=== PATIENT | male | born 1945 | race Caucasian/White ===

== ENCOUNTER 2016-08-14 18:43 | Observation (INO) | payer MEDICARE, OTHER ==
--- NOTE | 2016-08-14 20:03 | RAD ---
Indication: Code Jones. Difficulty finding words at approximate 1500 hours today. Comparison: No relevant prior exams available on the [facility] [place] for comparison. Technique: Noncontrast CT vertex of skull through foramen magnum. Report: 2.9 x 3.4 cm region of encephalomalacia at the anterior portion of the LEFT temporal lobe with associated mild ex vacuo dilatation of the temporal horn of the LEFT lateral ventricle noted related to a previous lesion with overlying LEFT temporal parietal craniectomy site. No additional region of acevedo matter white matter obscuration, intra or extra-axial hemorrhage, or mass effect evident. Unremarkable cerebral sulci and basal cisterns. Moderate prominence of the ventricles most likely secondary to involutional change. Unremarkable visualized orbital contents. No suspicious calvarial or skull base lesions evident. Clear paranasal sinuses and mastoid air spaces. Unremarkable scalp. IMPRESSION: 1. 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 2. Mild involutional change. 3. No acute intracranial process evident. Results discussed Dr. Villaseñor 08/14/2016 7:58 PM EDT
[2016-08-14 20:06] LABS: Hematocrit 43 % (42-52); Hemoglobin 14.4 g/dl (14.0-18.0); Mean Corpuscular HGB Conc 33 g/dl (31-36); Mean Corpuscular Hemoglobin 32 pg (27-31); Mean Corpuscular Volume 97 fL (80-94); Mean Platelet Volume 8 um3 (7.4-10.4); Red Blood Count 4.44 10^6/ul (4.0-5.4); Red Cell Distribution Width 13 % (10.5-15)
--- NOTE | 2016-08-14 20:11 | RAD ---
Indication: Slurred speech. Code acevedo. Comparison: November 17, 2009 CT abdomen. Technique: Upright AP 1950 hours Report: Clear lungs and pleural spaces. The heart, pulmonary vasculature, and mediastinal contours are unremarkable. Unremarkable osseous structures and soft tissue contours. IMPRESSION: No evidence for acute intrathoracic disease.
[2016-08-14 20:20] LABS: ALT 15 U/L (7-52); AST 19 U/L (13-39); Alkaline Phosphatase 50 U/L (34-104); Anion Gap 1 mmol/L (2-11); BUN/Creatinine Ratio 18.3 (8-20); Blood Urea Nitrogen 20 mg/dL (6-24); CO2 Carbon Dioxide 28 mmol/L (22-32); Calcium 9.3 mg/dL (8.6-10.3); Chloride 106 mmol/L (101-111); Cholesterol 146 mg/dL; EGFR African American 85.3 (>60); EGFR Non-African American 66.3 (>60); Glucose 123 mg/dL (70-100); HDL Cholesterol 41.7 mg/dL; LDL Cholesterol 82 mg/dL; Potassium 3.8 mmol/L (3.5-5.0); Sodium 135 mmol/L (133-145); Triglycerides 114 mg/dL
[2016-08-14] MEDS ORDERED: Aspirin TAB* 325 MG PO ONE (20:21)
[2016-08-14] MEDS ORDERED: Acetaminophen TAB* 325 MG PO PRN (21:07)
[2016-08-14] MEDS ORDERED: Ondansetron INJ* 2 MG/ML VIAL IV PRN (21:07)
[2016-08-14] MEDS ORDERED: Iohexol 350* (CONTRAST) 500 ML MDV IV ONE (21:13)
[2016-08-14 21:26] LABS: Urine Bacteria Absent (Absent); Urine Bilirubin Negative (Negative); Urine Glucose Negative (Negative); Urine Nitrite Negative (Negative)
[2016-08-14 21:28] LABS: Alcohol < 10 mg/dL (<10)
--- NOTE | 2016-08-14 22:11 | RAD ---
INDICATION: TIA. COMPARISON: CT brain of the same date. TECHNIQUE: Multidetector CT images were obtained from the aortic arch to the vertex of the head with 80 mL Omnipaque 350 IV contrast. Arterial phase of enhancement. Multiplanar reformation including maximum intensity projection. 3-D arterial volume rendering. Stenosis estimations based on denominator of distal arterial diameter. NECK ANGIOGRAM REPORT: Variant common origin of the LEFT common carotid artery and brachiocephalic artery from the aortic arch. Negative for ostial stenosis at the aortic arch branch vessels. Negative for significant RIGHT or LEFT common or internal carotid artery atherosclerotic plaque. Patent bilateral codominant vertebral arteries with both contributing to the basilar artery. NECK ANGIOGRAM IMPRESSION: Negative for carotid or vertebral artery stenosis or occlusion. HEAD ANGIOGRAM REPORT: Patent intracranial internal carotid arteries as well as the M1 and M2 segments of the middle cerebral arteries and the A1 and A2 segments of the anterior cerebral arteries. Patent anterior communicating artery. Unremarkable cerebellar artery origins and basilar artery. Patent bilateral posterior cerebral arteries. The posterior cerebral arteries are primarily supplied by the posterior circulation with normal variant hypoplastic posterior indicating arteries. Negative for intracranial aneurysms or vascular malformations. HEAD ANGIOGRAM IMPRESSION: Negative for intracranial large vessel arterial stenosis or occlusion. CPT II: CPT II Codes: 3100F
[2016-08-14] MEDS: Heparin VIAL(*) 5000 UNITS/ML VIAL (FIVE THOUSAND) SUBCUT SCH (23:01)
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
[2016-08-15] MEDS: Heparin VIAL(*) 5000 UNITS/ML VIAL (FIVE THOUSAND) SUBCUT SCH ×2 (05:19→14:09)
[2016-08-15 05:27] LABS: Hematocrit 44 % (42-52); Mean Corpuscular HGB Conc 34 g/dl (31-36); Mean Corpuscular Hemoglobin 33 pg (27-31); Mean Corpuscular Volume 96 fL (80-94); Mean Platelet Volume 8 um3 (7.4-10.4); Red Cell Distribution Width 13 % (10.5-15); White Blood Count 6.6 10^3/ul (3.5-10.8)
[2016-08-15 05:53] LABS: BUN/Creatinine Ratio 21.8 (8-20); Calcium 8.9 mg/dL (8.6-10.3); EGFR African American 110.6 (>60); HDL Cholesterol 39.8 mg/dL; Potassium 3.6 mmol/L (3.5-5.0)
[2016-08-15] MEDS ORDERED: Aspirin EC Low Dose* 81 MG TAB.EC PO SCH (09:00)
--- NOTE | 2016-08-15 10:41 | ECHO ---
Patient: AVLINO RODRIGEZ [facility] Rec#: [id number] : 1945 Date: 08/15/2016 Age: 71y Height: 180.34 cm / 71.0 in Weight: 81.65 kg / 180.0 lbs Sex: M BSA: 2.02 Room#: 431 Admit Date#: 08/14/2016 Type: Inpatient Referring: Neville Quiroz NP Reading: Sma Villafuerte MD It Technician: Rina Resendiz RDCS,RDMS Transthoracic Echocardiogram Indication: TIA BP: 123/61 HR: 60 Rhythm: NSR Findings History: HLD, intracranial hemorrhage Technical Comments: The study quality is good. Completed 1020 Left Ventricle: The left ventricular chamber size is normal. Mild concentric left ventricular hypertrophy is observed. Global left ventricular wall motion and contractility are within normal limits. There is normal left ventricular systolic function. The estimated ejection fraction is 55-60%. Abnormal left ventricular diastolic function is observed. Left Atrium: The left atrium is mildly dilated. Right Ventricle: The right ventricular chamber size and systolic function are within normal limits. Right Atrium: The right atrium is mildly dilated. A patent foramen ovale is demonstrated by agitated contrast. Aortic Valve: The aortic valve is trileaflet. Systolic excursion of the aortic valve is normal. There is trace to mild aortic regurgitation. There is no evidence of aortic stenosis. Mitral Valve: The mitral valve leaflets are mildly thickened. There is a trace of mitral regurgitation. There is no evidence of mitral stenosis. Tricuspid Valve: The tricuspid valve leaflets are normal. There is trace tricuspid regurgitation. No pulmonary hypertension is noted. Pulmonic Valve: The pulmonic valve appears normal. There is a trace pulmonic regurgitation. Pericardium: There is no significant pericardial effusion. Aorta: The aortic root appears normal. There is no dilatation of the aortic arch. Pulmonary Artery: The main pulmonary artery appears normal. Venous: The inferior vena cava appears normal. There is a greater than 50% respiratory change in the inferior vena cava dimension. Contrast: Intravenous agitated saline contrast was used to assess intracardiac shunting. Images 24 25 Conclusions Mild concentric left ventricular hypertrophy is observed. Global left ventricular wall motion and contractility are within normal limits. There is normal left ventricular systolic function. The estimated ejection fraction is 55-60%. The right ventricular chamber size and systolic function are within normal limits. A patent foramen ovale is demonstrated by agitated contrast. There is trace to mild aortic regurgitation. There is a trace of mitral regurgitation. There is trace tricuspid regurgitation. No pulmonary hypertension is noted. There is no significant pericardial effusion. Measurements Name Value Normal Range RVIDd (AP) 2D 3.3 cm (0.9 - 2.6) RVDdMajor (2D) 3.6 cm (2.2 - 4.4) RAd ISD 4CH 5.8 cm (3.4 - 4.9) RA (A4C)W 4.7 cm (2.9 - 4.6) IVSd (2D) 1.2 cm (0.6 - 1) LVPWd (2D) 1.1 cm (0.6 - 1) LVIDd (2D) 4.9 cm (3.6 - 5.4) LVIDs (2D) 3.4 cm - LV FS (2D) 29 % (25 - 45) Aortic Annulus 2.2 cm (1.4 - 2.6) Ao root diameter (2D) 3.4 cm (2.1 - 3.5) Ascending Ao 2.9 cm (2.1 - 3.4) Aortic arch 3 cm (1.8 - 3.4) LA dimension (AP) 2D 4 cm (2.3 - 3.8) LAd ISD 4CH 6 cm (2.9 - 5.3) LA ISD 4CH W 5 cm (2.5 - 4.5) Name Value Normal Range LA ESV SP 4CH (A/L) 71.86 ml - LA ESV SP 2CH (A/L) 63.78 ml - LA ESV BP (A/L) 68.23 ml - LA ESV BP (A/L) index 34 ml/m2 - LA ESV SP 4CH (MOD) 65.25 ml - LA ESV SP 2CH (MOD) 58.76 ml - Name Value Normal Range MV E-wave Vmax 0.5 m/sec - MV deceleration time 198 msec - MV A-wave Vmax 0.4 m/sec - MV E:A ratio 1.2 ratio - P. vein S-wave Vmax 0.6 m/sec - P. vein D-wave Vmax 0.3 m/sec - P. vein S:D Vmax ratio 2.2 ratio - P. vein A-wave duration 103.5 msec - LV septal e' Vmax 0.07 m/sec - LV lateral e' Vmax 0.09 m/sec - LV E:e' septal ratio 7.1 ratio - LV E:e' lateral ratio 5.6 ratio - Name Value Normal Range AV Vmax 1.3 m/sec - AV VTI 25.8 cm - AV peak gradient 7 mmHg - AV mean gradient 3.2 mmHg - LVOT Vmax 0.9 m/sec - LVOT VTI 17.5 cm - LVOT peak gradient 3.2 mmHg - LVOT mean gradient 1.6 mmHg - LIMA Vmax 0.8 m/sec - Name Value Normal Range TR Vmax 2.2 m/sec - TR peak gradient 16 mmHg - RAP 3 mmHg - RVSP 19 mmHg - IVC diameter 1.6 cm - Name Value Normal Range PV Vmax 0.6 m/sec - PV peak gradient 1.4 mmHg -
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
--- NOTE | 2016-08-15 15:54 | RAD ---
HISTORY: TIA COMPARISONS: Head CT dated January 23, 2017 TECHNIQUE: The following sequences were obtained of the head: Sagittal T1-weighted images, axial T2-weighted images, axial FLAIR images, axial susceptibility weighted images, axial T1-weighted images. Additionally, axial diffusion-weighted images were obtained with calculated apparent diffusion coefficients. FINDINGS: HEMORRHAGE/INFARCT: There is no hemorrhage or acute infarct. MASSES/SHIFT: There is no mass or shift. EXTRA-AXIAL SPACES/MENINGES: There are no extra-axial fluid collections. SULCI AND VENTRICLES: There is diffuse and proportional enlargement of the sulci and ventricles. CEREBRUM: There is left temporal encephalomalacia consistent with remote infarct or injury. BRAINSTEM: There are no focal parenchymal abnormalities. CEREBELLUM: There are no focal parenchymal abnormalities. The cerebellar tonsils are normal in size and position. SELLA: The sella is normal. PINEAL: The pineal region is clear. CP ANGLE/TEMPORAL BONES: The labyrinthine structures are grossly normal. VESSELS: Normal flow-voids are noted within the visualized vertebral vasculature. DIFFUSION ABNORMALITIES: There are no diffusion abnormalities. PARANASAL SINUSES/MASTOIDS: There is a mucous retention cyst of the right maxillary sinus ORBITS: The orbits are unremarkable. BONES AND SOFT TISSUE: No bone or soft tissue abnormalities are noted. OTHER: None IMPRESSION: 1. LEFT TEMPORAL ENCEPHALOMALACIA. 2. NO RESTRICTED DIFFUSION TO SUGGEST ACUTE INFARCT.
[2016-08-15 17:33] VITALS: BP 134/77
--- NOTE | 2016-08-15 20:00 | PN ---
Hospitalist Progress Note . HOSPITALIST DISCHARGE NOTE: See dc instructions and summary by me. Patient stable for dc dc instructions reviewed with the patient at the bedside. DC patient home today.
--- NOTE | 2016-08-15 20:17 | EEG ---
ELECTROENCEPHALOGRAPHY: DATE OF STUDY/DICTATION: O08/15/16 LOCATION: The patient is currently an inpatient in room 431. CLINICAL PROBLEM: Mr. 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 REPORT: In the beginning of the record, there were some tdoyqvjaoecr-ts-qiriua amplitude more sharply contoured waves often more frequently in the left hemisphere. In between this, there was a posterior dominant 9-Hz alpha rhythm, which attenuated with eye opening. As the record continued, there was fragmentation of the background rhythm with drowsiness and intermittently sharp wave with phase reversal noted in the left temporal region. As the record continued, general slowing was noted into the delta range suggesting the beginnings of stage II sleep. Intermittently, again higher amplitude more sharply contoured waves were noted in the left hemisphere. CLINICAL IMPRESSION: This was an abnormal EEG. There were intermittent-to- higher amplitude sharply contoured waves noted in the left temporal region, which may be seen in the setting of a skull defect. Intermittently, however, there was also slowing with sharp wave with phase reversal suggestive of epileptiform activity. [id number]/[facility] #: [id number] [facility]
[2016-08-15] MEDS ORDERED: Atorvastatin* 20 MG TAB PO SCH (21:00)
--- NOTE | 2016-08-15 21:32 | PN ---
CC: Laron Davis MD * FOLLOWUP NOTE: DATE OF FOLLOWUP: 08/15/16 HISTORY OF PRESENT ILLNESS: Mr. Wright was admitted for an episode of expressive aphasia as outlined in my consult this morning. Since that visit, he has had an MRI of the brain, which showed no new ischemic lesions. There was evidence of his previous temporal injury with encephalomalacia. The patient had indicated that there was small vessel ischemic disease and findings were minimal. He also had an echocardiogram and workup of differential diagnosis of stroke. Echocardiogram did show evidence of a PFO. His ejection fraction was 55% to 60 % and no other significant wall motion abnormality was noted. There was some mild left ventricular hypertrophy. Please see report for further details. EEG, however, was abnormal. There was intermittent high-amplitude sharply contoured waves in the left hemisphere consistent with breach rhythm in the setting of previous surgery. In addition, however, there was intermittent sharp waves with phase reversal in the left upper region suggesting potential for seizure. These results were discussed with patient and and differential diagnosis was again discussed of his events and approach to care. The most likely cause of his expressive aphasia was seizure, in particular, simple partial seizure. I have suggested starting on low-dose lamotrigine and tapering upward according to tolerability and response. At this point, I would suggest starting at 25 mg p.o. q.h.s. and take every night for 2 weeks and then 2 tablets p.o. q.h.s. Side effects were discussed including, but not limited to rash, mood change, tremor, he is to call if there are any problems or concerns and my card was provided to him. In regards to the differential diagnosis of TIA, this cannot be 100% excluded. He does have risk factor for stroke and he also had an episode a couple of days earlier of unclear etiology. At this point, I would suggest starting on a baby aspirin 81 mg p.o. daily and continuing on his lipid-lowering agent given the significant abnormality in the EEG; however, I would find this a less likely etiology of his expressive aphasia. TIME SPENT: Over 30 minutes were spent in direct [id number] patient care this evening, 50% of the time was spent on education counseling regarding results of test, differential diagnosis and plan for treatment, benefits and risks. We will plan to see the patient in my [place] office in 3 to 4 weeks. [id number]/[facility] #: [id number] MTDD
== END 2016-08-15 19:39 | disposition home or self-care (01) ==
LOC: ED 18:43 → MEDTELE 20:37
PROVIDERS: ADMIT Hospitalist; ATTEND Internal Medicine
DX: G45.9 Transient cerebral ischemic attack, unspecified (principal); G40.909 Epilepsy, unspecified, not intractable, without status epilepticus; R47.9 Unspecified speech disturbances; E78.5 Hyperlipidemia, unspecified; N40.1 Benign prostatic hyperplasia with lower urinary tract symptoms
CPT/HCPCS: 36415; 70450; 70496; 70498; 70551; 71010; 80048; 80053; 80061; 80320; 81003; 81015; 83036; 83605; 84484; 85025; 85610; 85730; 86850; 86900; 86901; 87086; 93005; 93306; 95819; 96374; 96375; 99285; A9270-GY; G0378; G0480; J1644; Q9967